=== PATIENT | female | born 1995 | race Caucasian/White ===

== ENCOUNTER 2019-09-18 13:03 | Emergency (ER) | payer OTHER ==
[~2019-09-18] VITALS: Ht 165.1 cm; Wt 65.3 kg
[2019-09-18 13:07] VITALS: Ht 165.1 cm; Wt 65.3 kg
[2019-09-18 14:10] VITALS: BP 119/91
== END 2019-09-18 14:10 | disposition home or self-care (01) ==
LOC: ED 13:03
DX: M25.512 Pain in left shoulder (principal); X58.XXXA Exposure to other specified factors, initial encounter; Y93.66 Activity, soccer; Y92.322 Soccer field as the place of occurrence of the external cause; Y99.8 Other external cause status
CPT/HCPCS: J1885; Q0092

== ENCOUNTER 2020-02-17 13:46 | Emergency (ER) | payer OTHER ==
[~2020-02-17] VITALS: Ht 165.1 cm; Wt 63.5 kg
[2020-02-17 13:59] VITALS: Ht 165.1 cm; Wt 63.5 kg
[2020-02-17 16:30] VITALS: BP 122/64
== END 2020-02-17 16:30 | disposition home or self-care (01) ==
LOC: ED 13:46
DX: S43.51XA Sprain of right acromioclavicular joint, initial encounter (principal); M25.512 Pain in left shoulder; X58.XXXA Exposure to other specified factors, initial encounter; Y93.89 Activity, other specified; Y92.89 Other specified places as the place of occurrence of the external cause; Y99.8 Other external cause status
CPT/HCPCS: Q0092